=== PATIENT | female | born 1960 | race Caucasian/White ===

== ENCOUNTER 2024-12-26 15:14 | Emergency (ER) | payer MEDICARE, SELFPAY ==
[2024-12-26 15:15] VITALS: BP 141/107; PULSE 107; RESP 20; TEMP 36.6; O2SAT 100
--- NOTE | 2024-12-26 15:31 | ED.NAVMDI ---
HPI - Nausea/Vomiting/Diarrhea General Chief complaint: Nausea/Vomiting/Diarrhea Stated complaint: vomitting Time Seen by Provider: 12/26/24 15:31 Source: patient Mode of arrival: ambulatory Limitations: no limitations History of Present Illness HPI Narrative: patient came to the ED from home with her by private car complaining of severe vomiting diarrhea and headache started have way through prep for Regular colonoscopy Tomorrow. Patient reports a lot of vomiting, a lot of diarrhea, feeling dehydrated. She denies abdominal pain. Related Data Allergies Allergy/AdvReac Type Severity Reaction Status Date / Time No Known Allergies Allergy Verified 12/26/24 15:24 Review of Systems Review of Systems: All systems reviewed & are unremarkable except as noted in HPI and below Exam Narrative: General appearance: Well-developed, well-nourished, restless, anxious, dry heaving Skin: Normal color Head: Normocephalic, nontraumatic Eyes: Clear conjunctiva ENT: Oropharynx normal, ears normal, nose normal Neck: Supple, nontender Chest and respiratory: Airway patent, no respiratory distress, no accessory muscle use Heart: Regular rate/rhythm Abdomen: Soft, nontender, no organomegaly, quiet bowel sounds Vascular: Normal peripheral pulses, normal capillary refill. Musculoskeletal: Normal range of motion, nontender back Neurologic: Alert and oriented ?3, FUNERAL DIRECTOR'S ASSISTANT is normal as tested, no gross motor deficit Course Consultations Consultation #1: DR MCDONALD, COOK CASHIER FOOD PREP AT [facility], AGREED WITH THE PLAN TO DISCONTINUE COLONOSCOPY PREP, DRINK CLEAR FLUID AND KEEP APPOINTMENT FOR TOMORROW Date: 12/26/24 Time: 17:49 Vital Signs Vital signs: Vital Signs Temperature 36.6 C 12/26/24 15:15 Pulse Rate 107 H 12/26/24 15:15 Respiratory Rate 20 12/26/24 15:15 Blood Pressure 141/107 H 12/26/24 15:15 Pulse Oximetry 100 12/26/24 15:15 Oxygen Delivery Room Air 12/26/24 15:15 Temperature 36.6 C 12/26/24 17:21 Pulse Rate 82 12/26/24 17:21 Respiratory Rate 18 12/26/24 17:21 Blood Pressure 154/90 H 12/26/24 17:21 Pulse Oximetry 95 12/26/24 17:21 Oxygen Delivery Room Air 12/26/24 17:21 MDM - Nausea/Vomiting/Diarrhea MDM Narrative Medical decision making narrative: patient presents with massive vomiting and diarrhea status post colonoscopy prep intake Vital signs showing blood pressure 141/107, heart rate 107 otherwise within normal limit Physical examination showing restless anxious patient Differential diagnosis include dehydration, electrolyte imbalance, allergic reaction to the bowel prep medications Differential Diagnosis Differential diagnosis: Likely other ( as above) Medical Records Attestation: I reviewed the patient's medical records. Lab Data Attestation: I reviewed the patient's lab results. 12/26/24 15:35 12/26/24 15:35 Labs: Lab Results 12/26/24 Range/Units 15:35 WBC 8.2 (4.8-10.8) K/mm3 RBC 4.59 (4.20-5.40) M/mm3 Hgb 14.2 H (11.7-13.8) g/dL Hct 42.7 H (35.0-42.0) % MCV 93.0 (78.0-102.0) fL MCH 30.9 (27.0-31.0) pg MCHC 33.3 (32-36) g/dL RDW 12.2 (11.6-14.4) % Plt Count 228 (150-420) K/mm3 MPV 11.3 (9.2-11.8) fl Immature Gran % (Auto) 0.5 H (0.0-0.0) % Neut % (Auto) 69.7 (50.0-70.0) % Lymph % (Auto) 24.0 (18.0-42.0) % Frontier % (Auto) 4.6 (2.0-11.0) % Eos % (Auto) 0.7 L (1.0-6.0) % Baso % (Auto) 0.5 (0.0-1.0) % Lymph # (Auto) 1.98 (1.10-4.50) K/mm3 Frontier # (Auto) 0.38 (0.10-0.90) K/mm3 Eos # (Auto) 0.06 (0.02-0.50) K/mm3 Baso # (Auto) 0.04 (0.00-0.10) K/mm3 Abs Immat Gran (auto) 0.04 H (0.00-0.00) K/mm3 Absolute Neuts (auto) 5.74 (1.70-7.20) K/mm3 Absolute Nucleated RBC 0.00 (0.00-0.00) K/mm3 Nucleated RBC % 0.0 (0-0.0) % Sodium 135 L (136-145) mmol/L Potassium 3.1 L (3.5-5.1) mmol/L Chloride 96 L (98-108) mmol/L Carbon Dioxide 24 (21-32) mmol/L Anion Gap 15 H (4-12) mmol/L BUN 11 (7-18) mg/dL Creatinine 1.08 H (0.55-1.02) mg/dL Estim Creat Clear Calc 39 ml/min Estimated GFR 51 L (59 - ) Glucose 169 H (70-99) mg/dL Calculated Osmolality 283 L (285-295) mOsm/kg Calcium 10.2 H (8.5-10.1) mg/dL Total Bilirubin 0.5 (0.00-1.00) mg/dL AST 25 (15-37) U/L ALT 27 (14-59) U/L Alkaline Phosphatase 75 (46-116) U/L Total Protein 8.2 (6.4-8.2) g/dL Albumin 4.3 (3.4-5.0) g/dL Critical Care Time Critical Care Time Critical Care Time: No Discharge Plan Discharge Clinical Impression: Acute hypokalemia, Drug-induced nausea and vomiting Patient Disposition: Home Condition: Stable Instructions: Hypokalemia (ED), Acute Nausea and Vomiting (ED) Additional Instructions: RETURN IF SYMPTOMS ARE WORSENING , KEEP YOUR APPOINTMENT FOR COLONOSCOPY TOMORROW, TAKE TYLENOL NEEDED FOR ACHES AND PAIN, ENCOURAGE FLUID INTAKE INCLUDING GATORADE, DO NOT TAKE THE REST OF THE COLONOSCOPY PREP, Patient Language: Angolan Prescriptions: New potassium chloride 20 mEq packet 20 meq PO BID 5 Days Qty: 1 0RF Follow-up/Referrals: Tawny,MD Liang [Primary Care Provider] -
[2024-12-26 15:40] LABS: Basophils Absolute Auto 0.04 K/mm3 (0.00-0.10); Basophils Percent Auto 0.5 % (0.0-1.0); Eosinophils Absolute Auto 0.06 K/mm3 (0.02-0.50); Eosinophils Percent Auto 0.7 % (1.0-6.0); Hematocrit 42.7 % (35.0-42.0); Hemoglobin 14.2 g/dL (11.7-13.8); Immature Granulocyte Absolute 0.04 K/mm3 (0.00-0.00); Immature Granulocyte Percent A 0.5 % (0.0-0.0); Lymphocytes Absolute Auto 1.98 K/mm3 (1.10-4.50); Mean Corpuscular HGB Conc 33.3 g/dL (32-36); Mean Corpuscular Hemoglobin 30.9 pg (27.0-31.0); Mean Platelet Volume 11.3 fl (9.2-11.8); Monocytes Absolute Auto 0.38 K/mm3 (0.10-0.90); Monocytes Percent Auto 4.6 % (2.0-11.0); Neutrophils Absolute Auto 5.74 K/mm3 (1.70-7.20); Neutrophils Percent Auto 69.7 % (50.0-70.0); Platelet Count Result 228 K/mm3 (150-420); Red Blood Count 4.59 M/mm3 (4.20-5.40); Red Cell Distribution Width 12.2 % (11.6-14.4); White Blood Count 8.2 K/mm3 (4.8-10.8)
[2024-12-26] MEDS: SODIUM CHLORIDE 0.9% IV 2,000 ML 999 ML IV CONT (15:42)
[2024-12-26] MEDS: KETOROLAC 30 MG/ML VIAL (*BKC) IV PUSH (15:43)
[2024-12-26] MEDS: ONDANSETRON INJ 4 MG/2 ML VIAL 8 MG IV PUSH (15:43)
--- OUTSIDE RECORDS SUMMARY | 2024-12-26 15:57 | XMS_ITS | Referral Summary ---
Author Organization [facility] Address [address] [place] [address] Care Team Providers Care Oil Lease Operator Name Role Phone Liang Hector MD Primary Care Provider [phone] Luz Barry MD Unavailable Radhames Nguyen MD Unavailable [phone] Encounters Date Type Department Care Team Description 11/25/2024 1:00 PM CDT Office Visit [facility] [address] [place] [phone] Liang Hector MD Upper respiratory tract infection, unspecified type (Primary Dx); Acute bacterial rhinosinusitis from Last 3 Months Allergies No known active allergies Medications bo-bto-gklqg acid-lutein (CENTRUM SILVER) 400-250 mcg tablet,chewable 0 0 Active calcium carbonate-vitami n D3 (CALCIUM 500 + D) 1,250mg (500mg elemental) - 200 units per tablet 0 0 Active glucosamine HCl 500 mg tablet 500 mg. 0 0 6 Active BIOTIN ORAL Take by mouth Active famotidine (PEPCID) 20 mg tabletIndication s:Gastroesophage al reflux disease without esophagitis TAKE ONE TABLET BY MOUTH TWICE A DAY 60 tablet 4 4 Active celecoxib (CeleBREX) 200 mg capsuleIndicatio ns:Generalized OA TAKE ONE CAPSULE BY MOUTH DAILY 90 capsule 1 4 Active benzonatate (TESSALON) 100 mg capsuleIndicatio ns:Cough Take 1 capsule (100 mg total) by mouth 3 (three) times a day as needed for cough 42 capsule 5 Active amoxicillin (AMOXIL) 500 mg tablet/capsule Take 1 tablet/capsu le (500 mg total) by mouth 3 (three) times a day for 5 days 15 tablet/capsul e 5 12/01/19 25 Active Problems Problem Noted Date Diagnosed Date Screening for colon cancer 12/19/2024 Acute bacterial rhinosinusitis 11/25/2024 Assessment & Plan (11/25/2024 3:27 PM CDT): WITH A NEG COVID AND FLU SWAB AMOX 500 MG PO TID FOR FIVE DAYS TESSLAON PERLES 200 MG PO TID FOR 7 DAYS Routine physical examination 01/22/2024 Assessment & Plan (01/24/2024 9:50 AM CDT): Immunizations were reviewed AND UPDATED Meds were reviewed sent in a prescription for celebrex today Skin assessment no lesions noticed F/u gy Mammogram and colonscopy on hold because of a lack of coverage she is symptomatic and has an appt to see her blade grader operator soon. Mixed hyperlipidemia 01/22/2024 Assessment & Plan (01/22/2024 11:46 AM CDT): Pooled cohort 3.8 percent De Quervain's disease (tenosynovitis) 10/19/2020 Overview (10/19/2020): Added automatically from request for surgery [id number] Gastroesophageal reflux disease without esophagi tis 12/27/2018 Generalized OA 12/27/2018 Arthralgia 03/04/2017 Positive LUÍS (antinuclear antibody) 03/04/2017 Constipation 01/07/2014 Overview (11/27/2016): Constipation Essential tremor 01/07/2014 Overview (11/27/2016): Benign essential tremor Hemorrhoids 01/07/2014 Overview (11/27/2016): Hemorrhoids Insomnia 01/07/2014 Overview (11/28/2016): Insomnia Atopic rhinitis 01/07/2014 Overview (11/28/2016): Allergic rhinitis Temporomandibular joint disorder 01/07/2014 Overview (11/28/2016): TMJ (temporomandibular joint syndrome) Immunizations Immunization Administration Dates Next Due Influenza, Unspecified 11/25/2024(Deferr ed: Patient Refused),06/15/2023(Deferred: Patient Refused) Pfizer SARS-CoV-2 Monovalent Vaccination (12+ Yrs) PURPLE 09/18/2020,08/28/2020 Tdap 12/01/2014 Social History Tobacco Use Types Packs/Day Years Used Date Smoking Tobacco: Never Smokeless Tobacco: Never AUDIT-C Answer Date Recorded Q1: How often do you have a drink containing alc ohol? 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 Gender Identity Not on file Sexual Orientation Not on file Last Filed Vital Signs Vital Sign Reading Time Taken Comments Blood Pressure 130/80 11/25/2024 12:51 PM CDT Pulse 91 11/25/2024 12:51 PM CDT Temperature 36.1 C (96.9 F) 11/25/2024 12:51 PM CDT Respiratory Rate 18 11/25/2024 12:51 PM CDT Oxygen Saturation 98% 11/25/2024 12:51 PM CDT Inhaled Oxygen Concentration - - Weight 66.2 kg (146 lb) 11/25/2024 12:51 PM CDT Height 151.1 cm (4' 11.5 ) 11/25/2024 12:51 PM C DT Body Mass Index 28.99 11/25/2024 12:51 PM CDT Plan of Treatment Upcoming Encounters Date Type Department Care Team (Late st Contact Info) Description 12/27/2024 12:30 PM CDT Hospital Encounter [address] [address] Emmanuel Davies MD [address] [place] [address] DR ZARCO [address] [place] [address] 12/27/2024 12:30 PM CDT Anesthesia Event [address] [address] Aleja Phelan, HEEL SORTER [address] [facility] [address] [place] [address] 12/27/2024 12:30 PM CDT - 12/27/2024 1:00 PM CDT Surgery [address] [address] Emmanuel Davies MD [address] [place] [address] DR ZARCO [address] [place] [address] COLONOSCOPY Scheduled Procedures Name Priority Associated Diagnoses Date/Ti me COLONOSCOPY Screening for colon cancer 12/27/2024 12:30 PM CDT Procedures Procedure Name Priority Date/Time Associated Diagnosis Comments POC INFLUENZA A/B, COVID-19 ANTIGEN Routine 11/25/2024 1:00 PM CDT Upper respiratory tract infection, unspecified type DEXA AXIAL SKELETON BONE DENSITY 1 OR MORE SITES Schedule Routine, Read Routine (OP Routine) 11/12/2020 2:28 PM CDT Encounter for screening for osteoporosis SCREENING MAMMOGRAM BILATERAL W CLAUDIO Schedule Routine, Read Routine (OP Routine) 11/12/2020 2:16 PM CDT Encounter for screening mammogram for malignant neoplasm of breast from Last 3 Months or Most Recently Relevant to Health Maintenance Results * POC Influenza A/B, COVID-19 antigen (11/25/2024 1:00 PM CDT) Influenza A Ag, POC Negative Negative [facility] Influenza B Ag, POC Negative Negative [facility] IM COVID-19 Ag POC Presumptive Negative Presumptive Negative, Invalid [facility]MS [facility] IM Nasal 11/25/2024 1:00 PM CDT Liang Hector MD POINT OF CARE TEST ORDERAB LES Final Result [facility] [address] [place] [id number] * Dexa Axial Skeleton Bone Density 1 or 2 Site (11/12/2020 2:28 PM CDT) Anatomical Region Laterality Modality Body N/A Other 11/12/2020 2:30 PM CDT Impressions 11/12/2020 2:31 PM CDT 1. Low bone mass (osteopenia) by WHO criteria. 2. The World Health Organization fracture risk assessment tool (FRAX) indicates that the 10 year probability for a major osteoporotic fracture is 15% and the 10 year probability for a hip fracture is 1.6%. GENERAL GUIDELINES: According to WHO guidelines, a T score of -1.0 or greater is normal, between -1.0 to -2.5 is osteopenia, and -2.5 or less is osteoporosis. Z score (instead of T score) is preferred for pediatric, young adults, premenopausal women and men under age of 50 years. In these patients, a Z score greater than or equal to -2.0 is considered to be in the expected range. For our facility, change in BMD of greater than 5% is considered statistically significant. General Recommendations: 1. Consider an evaluation for secondary causes of osteoporosis in patients with low bone density. 2. All patients should be counseled on adequate intake of calcium (1200 mg/day), vitamin D (600-800 IU daily) and exercise. 3. The National Osteoporosis Foundation (NOF) guidelines recommend initiating pharmacological therapy, in addition to calcium, vitamin D and exercise, to reduce fracture risk when: a. T-score less than or equal to -2.5 after secondary causes excluded. b. T-score between -1.0 and -2.5 with secondary causes associated with high risk of fracture. c. 10-year probability of hip fracture more than or equal to 3% (based on FRAX score). d. 10-year probability of major osteoporosis related fracture more than or equal to 20% (based on FRAX score). Followup: People with diagnosed cases of osteoporosis or at high risk for fracture should have regular bone mineral density tests. For patients eligible for Medicare, routine testing is allowed once every 2 years. The testing frequency can be increased to one year for patients who have rapidly progressive disease or those who are receiving long-term steroid therapy. Electronically signed by: Moose Mcbride 11/12/2020 2:31 PM CDT COMPLETION DATE: 11/12/2020 2:30 PM ORDERING HEALTHCARE PROVIDER: MAGALY FRANCO STUDY DESCRIPTION: DEXA AXIAL SKELETON BONE DENSITY 1 OR MORE SITES CLINICAL INDICATIONS: 60 year old post-menopausal female, screening for osteoporosis. COMPARISON: None available. TECHNIQUE: Dual x-ray absorptiometry (DEXA) was performed using [email or web address] system. Bone mineralization and T score are reported. FINDINGS: Lumbar spine Bone mineral density: 0.895 g/cm2 T-score: -1.4 Left hip Total bone mineral density: 0.886 g/cm2 Total hip T-score: -0.5 Femoral neck bone mineral density: 0.655 g/cm2 Femoral neck T-score: -1.7 Procedure Note Phu Morelos MD - 11/12/2020 COMPLETION DATE: 11/12/2020 2:30 PM ORDERING HEALTHCARE PROVIDER: MAGALY FRANCO STUDY DESCRIPTION: DEXA AXIAL SKELETON BONE DENSITY 1 OR MORE SITES CLINICAL INDICATIONS: 60 year old post-menopausal female, screening for osteoporosis. COMPARISON: None available. TECHNIQUE: Dual x-ray absorptiometry (DEXA) was performed using Hologic system. Bone mineralization and T score are reported. FINDINGS: Lumbar spine Bone mineral density: 0.895 g/cm2 T-score: -1.4 Left hip Total bone mineral density: 0.886 g/cm2 Total hip T-score: -0.5 Femoral neck bone mineral density: 0.655 g/cm2 Femoral neck T-score: -1.7 IMPRESSION: 1. Low bone mass (osteopenia) by WHO criteria. 2. The World Health Organization fracture risk assessment tool (FRAX) indicates that the 10 year probability for a major osteoporotic fracture is 15% and the 10 year probability for a hip fracture is 1.6%. GENERAL GUIDELINES: According to WHO guidelines, a T score of -1.0 or greater is normal, between -1.0 to -2.5 is osteopenia, and -2.5 or less is osteoporosis. Z score (instead of T score) is preferred for pediatric, young adults, premenopausal women and men under age of 50 years. In these patients, a Z score greater than or equal to -2.0 is considered to be in the expected range. For our facility, change in BMD of greater than 5% is considered statistically significant. General Recommendations: 1. Consider an evaluation for secondary causes of osteoporosis in patients with low bone density. 2. All patients should be counseled on adequate intake of calcium (1200 mg/day), vitamin D (600-800 IU daily) and exercise. 3. The National Osteoporosis Foundation (NOF) guidelines recommend initiating pharmacological therapy, in addition to calcium, vitamin D and exercise, to reduce fracture risk when: a. T-score less than or equal to -2.5 after secondary causes excluded. b. T-score between -1.0 and -2.5 with secondary causes associated with high risk of fracture. c. 10-year probability of hip fracture more than or equal to 3% (based on FRAX score). d. 10-year probability of major osteoporosis related fracture more than or equal to 20% (based on FRAX score). Followup: People with diagnosed cases of osteoporosis or at high risk for fracture should have regular bone mineral density tests. For patients eligible for Medicare, routine testing is allowed once every 2 years. The testing frequency can be increased to one year for patients who have rapidly progressive disease or those who are receiving long-term steroid therapy. Electronically signed by: Phu Morelos M.D. Magaly Franco NP IMG DXA PROCEDURES Final Resul t * Screening Mammogram Bilateral W Claudio (11/12/2020 2:16 PM CDT) Anatomical Region Laterality Modality Breast Bilateral Mammography 11/13/2020 1:52 PM CDT Impressions 11/13/2020 1:54 PM CDT No evidence of malignancy. Follow-up in 1 year with screening mammography is recommended. BI-RADS: 1 - Negative. Electronically signed by: Anam Duffy M.D. Narrative 11/13/2020 1:54 PM CDT EXAMINATION: SCREENING MAMMOGRAM BILATERAL W CLAUDIO ORDERING HEALTHCARE PROVIDER: MAGALY FRANCO HISTORY: Routine screening mammography. COMPARISON: 10/24/2019 through 03/10/2016 TECHNIQUE: CC and MLO views of the bilateral breasts were obtained with digital technique using breast tomosynthesis with C view. Computer aided detection was utilized. FINDINGS: There is scattered fibroglandular tissue There are no suspicious masses, calcifications, or architectural distortion. us Magaly Franco BUS CLEANER IMG MAMMO PROCEDURES Final Res ult from Last 3 Months or Most Recently Relevant to Health Maintenance Insurance [employer] CLAIMS OFFICE [facility] MEDICARE ADVANTAGE Care Teams Oil Lease Operator Relationship Specialty Start Date End Date Liang Hector MD [address] [place] [address] PCP - General 03/21/16 Luz Barry MD [address] [place] [address] Consulting Physician Rheumatology 12/24/17 Radhames Nguyen MD [address] [place] [id number] Ic Designer Gate Arrays Obstetrics and Gynecology 01/02/20
--- OUTSIDE RECORDS SUMMARY | 2024-12-26 15:57 | XMS_ITS | Clinical Summary ---
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 Mixed hyperlipidemia 01/22/2024 Assessment & Plan (01/22/2024 11:46 AM CDT): Pooled cohort 3.8 percent De Quervain's disease (tenosynovitis) 10/19/2020 Overview (10/19/2020): Added automatically from request for surgery [id number] Gastroesophageal reflux disease without esophagi tis 12/27/2018 Generalized OA 12/27/2018 Arthralgia 03/04/2017 Positive LUÍS (antinuclear antibody) 03/04/2017 Constipation 01/07/2014 Overview (11/27/2016): Constipation Essential tremor 01/07/2014 Overview (11/27/2016): Benign essential tremor Hemorrhoids 01/07/2014 Overview (11/27/2016): Hemorrhoids Insomnia 01/07/2014 Overview (11/28/2016): Insomnia Atopic rhinitis 01/07/2014 Overview (11/28/2016): Allergic rhinitis Temporomandibular joint disorder 01/07/2014 Overview (11/28/2016): TMJ (temporomandibular joint syndrome) Encounters Date Type Department Care Team Description 11/25/2024 1:00 PM CDT Office Visit [facility] [address] [place] [address] Liang Hector MD Upper respiratory tract infection, unspecified type (Primary Dx); Acute bacterial rhinosinusitis from Last 3 Months Immunizations Immunization Administration Dates Next Due Influenza, Unspecified 11/25/2024(Deferr ed: Patient Refused),06/15/2023(Deferred: Patient Refused) Pfizer SARS-CoV-2 Monovalent Vaccination (12+ Yrs) PURPLE 09/18/2020,08/28/2020 Tdap 12/01/2014 Surgical History Surgery Date Site/Laterality Comments TUBAL LIGATION Medical History Medical History Date Comments Hx Other Medical novasure; Comme nts: TERRIE 03/10/2016 - Arthritis Motion sickness Basal cell carcinoma (BCC) of back skin GERD (gastroesophageal reflux disease) Family History Medical History Relation Name Comments Asthma Father Asthma Mother Hypertension Mother Breast cancer Paternal Grandmother Thyroid cancer Paternal Grandmother Breast cancer Sister Cancer, breast ; Relation Name Status Comments Father Mother Paternal Grandmother Sister Alive Social History Tobacco Use Types Packs/Day Years [...] on file 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 Gender Identity Not on file Sexual Orientation Not on file Obstetrics History Para Term AB IAB SAB Ectopic Multiple Livin g Live Births 3 3 3 Date Outcome GA Total Labor Labor/2nd/3rd Weight Sex Type Anes PTL Cherri A1 A5 Name Clin Term Term Term Last Filed Vital Signs Vital Sign Reading [...] Description 12/27/2024 12:30 PM CDT Hospital Encounter [address] [address] Emmanuel Davies MD [address] [facility] [address] ZARCO [address] [place] [address] 12/27/2024 12:30 PM CDT Anesthesia Event [address] [address] Aleja Phelan, INSTRUMENTATION AND CONTROL TECHNICIAN [address] [facility] [address] [place] [id number] 12/27/2024 12:30 PM CDT - 12/27/2024 1:00 PM CDT Surgery [address] [address] Emmanuel Davies MD [address] [facility] [address] [place] [address] COLONOSCOPY Scheduled Procedures Name Priority Associated Diagnoses Date/Ti me COLONOSCOPY Screening for colon cancer 12/27/2024 12:30 PM CDT Health Maintenance Due Date Last Done Comments Cervical Cancer Screening 1959 Colon Cancer Screening-Colonoscopy 1959 Hepatitis C Screening 1959 Hepatitis B Screening 1977 Pneumococcal vaccine 65+ (1 of 1 - PCV) 2009 Zoster Vaccine (1 of 2) 2009 Breast Cancer Screening-Mammogram 11/12/2021 11/12/2020, 10/24/2019, 09/27/2018, Additional history exists Osteoporosis Screening-Bone Density Scan 11/12/2022 11/12/2020 Covid-19 Vaccine (3 - 2023-2 5 season) 2024 09/18/2020, 08/28/2020 DTaP/Tdap/Td Vaccine (2 - Td or Tdap) 12/01/2024 12/01/2014 Well Visit 65+ 01/21/2025 01/22/2024, 12/23, 01/13/2022, Additional history exists Influenza Vaccine (Season Ended) 2025 Depression Screening 11/25/2025 11/25/2024 Fall Risk Assessment 11/25/2025 11/25/2024 Procedures Procedure Name Priority Date/Time Associated Diagnosis [...] [facility] IM Nasal 11/25/2024 1:00 PM CDT us Liang Hector MD POINT OF CARE TEST ORDERAB LES Final Result [facility] [address] [place] [phone], [facility] * Dexa Axial Skeleton Bone Density [...] therapy. Electronically signed by: Phu Morelos M.D. Narrative 11/12/2020 2:31 PM CDT COMPLETION DATE: 11/12/2020 [...] by: Phu Morelos M.D. Magaly Franco NP IM DXA PROCEDURES Final Resul t * Screening [...] calcifications, or architectural distortion. us Magaly Franco MARINE PILOT IMG MAMMO PROCEDURES Final Res ult from Last 3 Months or Most Recently Relevant to Health Maintenance Insurance [employer] CLAIMS OFFICE [facility] MEDICARE ADVANTAGE [facility] MEDIC[facility] Address: [address] [address] [place] [address] Care Teams Ice Handler Relationship Specialty Start Date End Date Liang Hector MD [address] [place] [address] PCP - General 03/21/16 Luz Barry MD [address] [place] [address] Consulting Physician Rheumatology 12/24/17 Radhames Nguyen MD [address] [place] [address] Community Ambassador Obstetrics and Gynecology 01/02/20
--- OUTSIDE RECORDS SUMMARY | 2024-12-26 15:57 | XMS_ITS | Encounter Summary ---
Author Organization [facility] Address [address] [place] [address] Phone Care Team Providers Care Beauty Consultant Name Role Phone Liang Hector MD Primary Care Provider [phone]- [phone] Luz Barry MD Unavailable Georgia Caballero MD Unavailable Radhames Nguyen MD Unavailable Encounter Details Date Type Department Care Team (Late Contact Info) Description 12/17/2017 Orders Only [facility] [address] [place] [address] Liang Hector MD [address] [address] Social History Tobacco Use Types Packs/Day Years Used Date Smoking Tobacco: Never Smokeless Tobacco: Never Comments No Sex and Gender Information Value Date Recorded Sex Assigned at Not on file Legal Sex Female 1:46 PM BETTING CLERKS Gender Identity Not on file Sexual Orientation Not on file documented as of this encounter Plan of Treatment Upcoming Encounters Date Type Department Care Team (Late Contact Info) Description 12/27/2024 12:30 PM CDT Hospital Encounter [address] [address] Emmanuel Davies MD [address] [facility] [place] [address] 12/27/2024 12:30 PM CDT Anesthesia Event [address] [address] Aleja Phelan, DIRECTOR DIGITAL ADVERTISING [address] [facility] [address] [place] [address] 12/27/2024 12:30 PM CDT - 12/27/2024 1:00 PM CDT Surgery [address] [address] Emmanuel Davies MD [address] [facility] [place] [address] COLONOSCOPY Scheduled Procedures Name Priority Associated Diagnoses Date/Ti me COLONOSCOPY Screening for colon cancer 12/27/2024 12:30 PM CDT documented as of this encounter Procedures Procedure Name Priority Date/Time Associated Diagnosis Comments SCAN - LABS 12/17/2017 3:23 PM CDT documented in this encounter Results * SCAN - LABS (12/17/2017 3:23 PM CDT) Liang Hector MD Final Resu lt documented in this encounter Visit Diagnoses Not on filedocumented in this encounter Additional Health Concerns Infection Onset Date Last Indicated Resolved Time COVID: Suspected 11/25/2024 11/25/2024 11/26/2024 3:05 AM CDT documented as of this encounter Care Teams Beauty Consultant Relationship Specialty Start Date End Date Liang Hector MD [address] [place] [address] PCP - General 03/21/16 Luz Barry MD [address] [place] [address] Consulting Physician Rheumatology 12/24/17 Georgia Caballero MD [address] [place] [address] Chuck Tender Obstetrics and Gynecology 12/24/17 01/01/20 Radhames Nguyen MD [address] [place] [address] Chuck Tender Obstetrics and Gynecology 01/02/20 documented as of this encounter
--- OUTSIDE RECORDS SUMMARY | 2024-12-26 15:57 | XMS_ITS | Encounter Summary ---
Author Organization [facility] Address [address] [place] [address] Phone Care Team Providers Care Denture Technician Name Role Phone Liang Hector MD Primary Care Provider [phone]- [phone] Luz Barry MD Unavailable Georgia Caballero MD Unavailable Radhames Nguyen MD Unavailable [phone] Encounter Details Date Type Department Care Team (Late Contact Info) Description 09/10/2017 Orders Only [facility] [address] [place] [address] Liang Hector MD [address] [address] Social History Tobacco Use Types Packs/Day Years Used Date Smoking Tobacco: Never Smokeless Tobacco: Never Comments No Sex and Gender Information Value Date Recorded Sex Assigned at Not on file Legal Sex Female 1:46 PM PAIRER ODDS Gender Identity Not on file Sexual Orientation Not on file documented as of this encounter Plan of Treatment Upcoming Encounters Date Type Department Care Team (Late Contact Info) Description 12/27/2024 12:30 PM CDT Hospital Encounter [address] [address] Emmanuel Davies MD [address] [facility] [address] [place] [address] 12/27/2024 12:30 PM CDT Anesthesia Event [address] [address] Aleja Phelan, [facility] [address] [facility] [address] [place] [address] 12/27/2024 12:30 PM CDT - 12/27/2024 1:00 PM CDT Surgery [address] [address] Emmanuel Davies MD [address] [facility] [address] [place] [address] COLONOSCOPY Scheduled Procedures Name Priority Associated Diagnoses Date/Ti me COLONOSCOPY Screening for colon cancer 12/27/2024 12:30 PM CDT documented as of this encounter Procedures Procedure Name Priority Date/Time Associated Diagnosis Comments SCAN - LABS 09/10/2017 10:40 AM PAIRER ODDS documented in this encounter Results * SCAN - LABS (09/10/2017 10:40 AM PAIRER ODDS) Liang Hector MD Final Resu lt documented in this encounter Visit Diagnoses Not on filedocumented in this encounter Additional Health Concerns Infection Onset Date Last Indicated Resolved Time COVID: Suspected 11/25/2024 11/25/2024 11/26/2024 3:05 AM CDT documented as of this encounter Care Teams Denture Technician Relationship Specialty Start Date End Date Liang Hector MD [address] [place] [address] PCP - General 03/21/16 Luz Barry MD [address] [place] [address] Consulting Physician Rheumatology 12/24/17 Georgia Caballero MD [address] [place] [address] Network Security Officer Obstetrics and Gynecology 12/24/17 01/01/20 Radhames Nguyen MD [address] [place] [address] Network Security Officer Obstetrics and Gynecology 01/02/20 documented as of this encounter
[2024-12-26 16:02] LABS: Alanine Aminotransferase 27 U/L (14-59); Albumin Level 4.3 g/dL (3.4-5.0); Alkaline Phosphatase 75 U/L (46-116); Anion Gap 15 mmol/L (4-12); Aspartate Amino Transferase 25 U/L (15-37); Bilirubin,Total 0.5 mg/dL (0.00-1.00); Blood Urea Nitrogen 11 mg/dL (7-18); Calcium 10.2 mg/dL (8.5-10.1); Carbon Dioxide 24 mmol/L (21-32); Chloride 96 mmol/L (98-108); Estimated CRCL calculation 39 ml/min; Estimated Glomerular Filt Rate 51; Glucose 169 mg/dL (70-99); Osmolality Calculated 283 mOsm/kg (285-295); Potassium 3.1 mmol/L (3.5-5.1); Sodium 135 mmol/L (136-145); Total Protein 8.2 g/dL (6.4-8.2)
--- OUTSIDE RECORDS SUMMARY | 2024-12-26 16:54 | XMS_ITS | Clinical Summary ---
Author Organization [facility] Address [address] [place] [address] Phone Care Team Providers Care Freight Flagman Name Role Phone Liang Hector MD Primary Care Provider [phone]- [phone] Family History Medical History Relation Name Comments Breast Cancer Sister Relation Name Status Comments Sister Social History Tobacco Use Types Packs/Day Years Used Date Smoking Tobacco: Never Assessed Comments No Sex and Gender Information Value Date Recorded Sex Assigned at Not on file Legal Sex Female 8:53 PM CDT Gender Identity Not on file Sexual Orientation Not on file Plan of Treatment Health Maintenance Due Date Last Done Comments TdaP Immunization 1959 Colonoscopy 2004 Colorectal Cancer Screening 2004 Cologuard 2009 Immunochemical Fecal Occult Blood 2009 Pneumococcal Immunization (5 0+ years) (1 of 1 - PCV) 2009 Zoster Immunization (1 of 2) 2009 Influenza Immunization (#1) 2024 SARS-COV-2 Immunization ( - 2023- season) 2024 Respiratory Syncytial Virus (RSV) Immunization (Adult) (1 - 1-dose 75+ series) 2034 Hepatitis C Virus (HCV) Screening Completed 016 Mammogram Discontinued 03/10/2016 Hepatitis B Immunization Aged Out No longer eligible based on patient's age to complete this topic Meningococcal Immunization (ACWY) Aged Out No longer eligible based on patient's age to complete this topic Rotavirus Immunization Aged Out No lo nger eligible based on patient's age to complete this topic Procedures Procedure Name Priority Date/Time Associated Diagnosis Comments HEPATITIS C ANTIBODY Routine 03/10/2016 1:35 PM CDT Pain in joint, other specified sites BESS SCREENING BILATERAL DIGITAL W CAD Routine 03/10/2016 8:56 AM CDT Encounter for screening mammogram for breast cancer from Last 3 Months or Most Recently Relevant to Health Maintenance Results * HEPATITIS C ANTIBODY (03/10/2016 1:35 PM CDT) hepatitis C antibody 0.10 <1 S/CO 03/10/2016 10:02 PM CDT [facility] Comment: Signal/Cutoff ratio < 0.79 is Nondetected Signal/Cutoff ratio 0.80-0.99 is Grayzone Signal/Cutoff ratio > 0.99 is Detected Supplemental assays are recommended if signal/cutoff ratio is >/=1.00. Signal/cutoff ratio result >/= 5.00 is 97% predictive of positivity for recombinant immunoblot assay (RIBA) and will be reported to the [place] Department of Public [facility] as required. Blood specimen (specimen) Venipuncture / Unknown 03/10/2016 1:35 PM CDT 03/10/2016 2:17 PM CDT us Not On File Provider CHEMISTRY ORDERABLES Final Result [facility] [address] [place] [address], * BESS SCREENING BILATERAL DIGITAL W CAD (03/10/2016 8:56 AM CDT) Anatomical Region Laterality Modality breast Bilateral Mammography 03/10/2016 8:43 AM CDT Narrative 03/11/2016 7:34 AM CDT - BESS SCREENING BILATERAL DIGITAL W CAD BILATERAL DIGITAL SCREENING MAMMOGRAM WITH CAD WITH MEDIOLATERAL OBLIQUE CRANIOCAUDAL: 03/10/2016 The study was acquired using digital technology and interpreted from soft copy. Current study was also evaluated with ICAD version 7.2. CLINICAL: Routine screening. Patient has no complaints. No personal history of cancer. Sister with breast cancer. COMPARISONS: Comparison is made to exams dated: 07/31/2014 and 04/11/2013 [facility]. BREAST TISSUE:There are scattered fibroglandular densities in both breasts. FINDINGS: No significant masses, calcifications, or other findings are seen in either breast. There has been no significant interval change. IMPRESSION: BI-RAD 1 NEGATIVE There is no mammographic evidence of malignancy. A 1 year screening mammogram is recommended. The patient has been or will be contacted. The patient will be entered into a reminder system with a target due date of 1 year for her next screening exam. Electronically signed by: Sherman Angelo M.D. nd/penrad:03/10/2016 10:10:28 Demolition Hammer Operator: Jerrica Bear(R), [facility] letter sent: Normal Exam Reading location: [facility] BI-RADS: 1 Negative Procedure Note Sherman Angelo MD - 03/11/2016 - BESS SCREENING BILATERAL DIGITAL W CAD BILATERAL DIGITAL SCREENING MAMMOGRAM WITH CAD WITH MEDIOLATERAL OBLIQUE CRANIOCAUDAL: 03/10/2016 The study was acquired using digital technology and interpreted from soft copy. Current study was also evaluated with ICAD version 7.2. CLINICAL: Routine screening. Patient has no complaints. No personal history of cancer. Sister with breast cancer. COMPARISONS: Comparison is made to exams dated: 07/31/2014 and 04/11/2013 [facility]. BREAST TISSUE:There are scattered fibroglandular densities in both breasts. FINDINGS: No significant masses, calcifications, or other findings are seen in either breast. There has been no significant interval change. IMPRESSION: BI-RAD 1 NEGATIVE There is no mammographic evidence of malignancy. A 1 year screening mammogram is recommended. The patient has been or will be contacted. The patient will be entered into a reminder system with a target due date of 1 year for her next screening exam. Electronically signed by: Sherman Angelo M.D. nd/penrad:03/10/2016 10:10:28 Demolition Hammer Operator: Jerrica Bear(R), [facility] letter sent: Normal Exam Reading location: [facility] BI-RADS: 1 Negative us Magaly Franco APRN, [facility] MAMMO ORDERABLES Fin al Result from Last 3 Months or Most Recently Relevant to Health Maintenance Care Teams Freight Flagman Relationship Specialty Start Date End Date Liang Hector MD [place] [address] PCP - General Internal Medicine 12/07/15
--- OUTSIDE RECORDS SUMMARY | 2024-12-26 16:54 | XMS_ITS | Encounter Summary ---
Author Organization [facility] Address [address] [place] [address] Phone Care Team Providers Care Grain And Yeast Plants Supervisor Name Role Phone Liang Hector MD Primary Care Provider [phone]- [phone] Luz Barry MD Unavailable Georgia Caballero MD Unavailable Radhames Nguyen MD Unavailable Encounter Details Date Type Department Care Team (Late Contact Info) Description 09/10/2017 Orders Only [facility] [address] [place] [address] Liang Hector MD [address] [address] Social History Tobacco Use Types Packs/Day Years Used Date Smoking Tobacco: Never Smokeless Tobacco: Never Comments No Sex and Gender Information Value Date Recorded Sex Assigned at Not on file Legal Sex Female 1:46 PM HOSE SPRAYER Gender Identity Not on file Sexual Orientation Not on file documented as of this encounter Plan of Treatment Upcoming Encounters Date Type Department Care Team (Late Contact Info) Description 12/27/2024 12:30 PM CDT Hospital Encounter [address] [address] Emmanuel Davies MD [address] [facility] [address] [place] [address] 12/27/2024 12:30 PM CDT Anesthesia Event [address] [address] Aleja Phelan, [facility] [address] [facility] [address] [place] [address] 12/27/2024 12:30 PM CDT - 12/27/2024 1:00 PM CDT Surgery [address] [address] Emmanuel Davies MD [address] [facility] [place] [address] COLONOSCOPY Scheduled Procedures Name Priority Associated Diagnoses Date/Ti me COLONOSCOPY Screening for colon cancer 12/27/2024 12:30 PM CDT documented as of this encounter Procedures Procedure Name Priority Date/Time Associated Diagnosis Comments SCAN - LABS 09/10/2017 10:40 AM HOSE SPRAYER documented in this encounter Results * SCAN - LABS (09/10/2017 10:40 AM HOSE SPRAYER) Liang Hector MD Final Resu lt documented in this encounter Visit Diagnoses Not on filedocumented in this encounter Additional Health Concerns Infection Onset Date Last Indicated Resolved Time COVID: Suspected 11/25/2024 11/25/2024 11/26/2024 3:05 AM CDT documented as of this encounter Care Teams Grain And Yeast Plants Supervisor Relationship Specialty Start Date End Date Liang Hector MD [address] [place] [address] PCP - General 03/21/16 Luz Barry MD [address] [place] [address] Consulting Physician Rheumatology 12/24/17 Georgia Caballero MD [address] [place] [address] Optics Technical Officer Obstetrics and Gynecology 12/24/17 01/01/20 Radhames Nguyen MD [address] [place] [address] Optics Technical Officer Obstetrics and Gynecology 01/02/20 documented as of this encounter
--- OUTSIDE RECORDS SUMMARY | 2024-12-26 16:54 | XMS_ITS | Referral Summary ---
Author Organization [facility] Address [address] [place] [address] Care Team Providers Care Senior Applications Analyst Name Role Phone Liang Hector MD Primary Care Provider [phone]- [phone] Luz Barry MD Unavailable Radhames Nguyen MD Unavailable [phone] Encounters Date Type Department Care Team Description 11/25/2024 1:00 PM CDT Office Visit [facility] [address] [place] [address] Liang Hector MD Upper respiratory tract infection, unspecified type (Primary Dx); Acute bacterial rhinosinusitis from Last 3 Months Allergies No known active allergies Medications ie-pcq-jtjol acid-lutein (CENTRUM SILVER) 400-250 mcg tablet,chewable 0 [...] and has an appt to see her genetic scientist soon. Mixed hyperlipidemia 01/22/2024 Assessment & Plan (01/22/2024 11:46 AM CDT): Pooled cohort 3.8 percent De Quervain's disease (tenosynovitis) 10/19/2020 Overview (10/19/2020): Added automatically from request for surgery [id number] Gastroesophageal reflux disease without esophagi tis 12/27/2018 [...] on file Legal Sex Female 1:46 PM APPRENTICE COOK Gender Identity Not on file Sexual Orientation [...] Description 12/27/2024 12:30 PM CDT Hospital Encounter [address] [address] Emmanuel Davies MD [address] [place] [address] [address] [place] [address] 12/27/2024 12:30 PM CDT Anesthesia Event [address] [address] Aleja Phelan, PUBLIC SAFETY DIRECTOR [address] [facility] [address] [place] [address] 12/27/2024 12:30 PM CDT - 12/27/2024 1:00 PM CDT Surgery [address] [address] Emmanuel Davies MD [address] [place] [address] [address] [place] [address] COLONOSCOPY Scheduled Procedures Name Priority Associated Diagnoses [...] [facility] [address] [place] [address] * Dexa Axial Skeleton Bone Density 1 [...] Dual x-ray absorptiometry (DEXA) was performed using HoloMOBITRAC system. Bone mineralization and T score are [...] calcifications, or architectural distortion. us Magaly Franco REHEATER IMG MAMMO PROCEDURES Final Res ult from Last 3 Months or Most Recently Relevant to Health Maintenance Insurance [employer] CLAIMS OFFICE [facility]IC[facility] Address: [facility] [address] [place] [address] Care Teams Senior Applications Analyst Relationship Specialty Start Date End Date Liang Hector MD [address] [place] [address] PCP - General 03/21/16 Luz Barry MD [address] [place] [address] Consulting Physician Rheumatology 12/24/17 Radhames Nguyen MD [address] [place] [address] Education Technician Obstetrics and Gynecology 01/02/20
--- OUTSIDE RECORDS SUMMARY | 2024-12-26 16:54 | XMS_ITS | Clinical Summary ---
Author Organization [facility] [place] Address [address] [place] [address] Care Team Providers Care Academic Affairs Manager Name Role Phone Tawny, Liang Watt MD Primary Care Provider [phone]- [phone] Luz Barry MD Unavailable Radhames Nguyen MD Unavailable [phone] Allergies No known active allergies Medications qs-rpu-babyl acid-lutein (CENTRUM SILVER) 400-250 mcg tablet,chewable 0 [...] and has an appt to see her placing judge soon. Mixed hyperlipidemia 01/22/2024 Assessment & Plan (01/22/2024 11:46 AM CDT): Pooled cohort 3.8 percent De Quervain's disease (tenosynovitis) 10/19/2020 Overview (10/19/2020): Added automatically from request for surgery [id number] Gastroesophageal reflux disease without esophagi tis 12/27/2018 [...] Description 11/25/2024 1:00 PM CDT Office Visit [facility] [address] [place] [address] Liang Hector MD Upper respiratory tract infection, [...] on file Legal Sex Female 1:46 PM PAINT STRIPING MACHINE OPERATOR Gender Identity Not on file Sexual Orientation [...] Description 12/27/2024 12:30 PM CDT Hospital Encounter [address] [address] Emmanuel Davies MD [address] [facility] [address] [place] [address] 12/27/2024 12:30 PM CDT Anesthesia Event [address] [address] Aleja Phelan, SERVICE SUPPORT REPRESENTATIVE [address] [facility] [address] [place] [id number] 12/27/2024 12:30 PM CDT - 12/27/2024 1:00 PM CDT Surgery [address] [address] Emmanuel Davies MD [address] [facility] [address] [place] [address] COLONOSCOPY Scheduled Procedures Name Priority Associated Diagnoses [...] LES Final Result [facility] [address] [place] [address], [facility] * Dexa Axial Skeleton Bone Density 1 [...] calcifications, or architectural distortion. us Magaly Franco CHIEF COMMUNICATIONS OFFICER IMG MAMMO PROCEDURES Final Res ult from Last 3 Months or Most Recently Relevant to Health Maintenance Insurance [employer] CLAIMS OFFICE [facility] MEDICARE ADVANTAGE Care Teams Academic Affairs Manager Relationship Specialty Start Date End Date Liang Hector MD [address] [place] [address] PCP - General 03/21/16 Luz Barry MD [address] [place] [address] Consulting Physician Rheumatology 12/24/17 Radhames Nguyen MD [address] [place] [address] Stadium Attendant Obstetrics and Gynecology 01/02/20
--- OUTSIDE RECORDS SUMMARY | 2024-12-26 16:54 | XMS_ITS | Encounter Summary ---
Author Organization [facility] Address [address] [place] [address] Phone Care Team Providers Care Principal Secretary Name Role Phone Liang Hector MD Primary Care Provider [phone] Luz Barry MD Unavailable Georgia Caballero MD Unavailable [phone] Radhames Nguyen MD Unavailable Encounter Details Date Type Department Care Team (Late Contact Info) Description 12/17/2017 Orders Only [facility] [address] [place] [address] Liang Hector MD [address] [address] Social History Tobacco Use Types Packs/Day Years Used Date Smoking Tobacco: Never Smokeless Tobacco: Never Comments No Sex and Gender Information Value Date Recorded Sex Assigned at Not on file Legal Sex Female 1:46 PM DOCTOR ASSISTANT Gender Identity Not on file Sexual Orientation Not on file documented as of this encounter Plan of Treatment Upcoming Encounters Date Type Department Care Team (Late Contact Info) Description 12/27/2024 12:30 PM CDT Hospital Encounter [address] [address] Emmanuel Davies MD [address] [facility] [place] [address] 12/27/2024 12:30 PM CDT Anesthesia Event [address] [address] Aleja Phelan, PIPE WRAPPING MACHINE OPERATOR [address] [facility] [address] [place] [address] 12/27/2024 12:30 PM CDT - 12/27/2024 1:00 PM CDT Surgery [address] [address] Emmanuel Davies MD [address] [facility] [place] [address] COLONOSCOPY Scheduled Procedures Name Priority Associated Diagnoses [...] documented as of this encounter Care Teams Principal Secretary Relationship Specialty Start Date End Date Liang Hector MD [address] [place] [address] PCP - General 03/21/16 Luz Barry MD [address] [place] [address] Consulting Physician Rheumatology 12/24/17 Georgia Caballero MD [address] [place] [address] Insecticide Expert Obstetrics and Gynecology 12/24/17 01/01/20 Radhames Nguyen MD [address] [place] [address] Insecticide Expert Obstetrics and Gynecology 01/02/20 documented as of this encounter
[2024-12-26 17:21] VITALS: BP 154/90; PULSE 82; RESP 18; TEMP 36.6; O2SAT 95
[2024-12-26] MEDS: diphenhydrAMINE HCl INJ 50 MG/ML VIAL 25 MG IV PUSH (17:23)
[2024-12-26] MEDS: METOCLOPRAMIDE HCL INJ 10 MG/2 ML VIAL IV PUSH (17:23)
[2024-12-26] MEDS: POTASSIUM CHLORIDE 20 MEQ PACKET (FOR LIQUID) PO (18:02)
== END 2024-12-26 18:16 | disposition home or self-care (01) ==
PROVIDERS: Emergency Provider Emergency Medicine; PCP Internal Medicine Infectious Disease
DX: E87.6 Hypokalemia (principal); R11.2 Nausea with vomiting, unspecified; T50.995A Adverse effect of other drugs, medicaments and biological substances, initial encounter
CPT/HCPCS: 36415; 80053; 85025; 96361; 96374; 96375; 99284; A9270; J1200; J1885; J2405; J2765; J7030